=== PATIENT | female | born 1980 | race Caucasian/White ===

== ENCOUNTER 2022-10-29 10:56 | Outpatient (AMB) | payer OTHER, SELFPAY ==
--- NOTE | 2022-10-29 11:18 | A.SPINEOV_ITS ---
Intake Intake Visit Reasons: Herniated disc Intake Note: Ms. Watkins is here today c/o low back pain. MRI done @ [facility]/brought disc. Television Equipment Operator Required: No Assessment & Plan Assessment & Plan (1) Lumbar degenerative disc disease: Code(s): M51.36 - Other intervertebral disc degeneration, lumbar region Plan Dear Dr Pabon This is a 41-year-old Judaism female who came to the office after finding Dr. Neal name on the Internet for minimally invasive spine surgeons. She has had a back issue since 2018 when she was moving a mattress and felt something give out on her back. She was down and out for 3 weeks at that time, and was having a very difficult time getting back to her activities. Eventually with some physical therapy, ice, heat, activity modifications and some steroid injections she was able to get back to some degree of normalcy. Unfortunately however, over the years S times progress the back pain has only continued to steadily get worse. Now she is at a point where she can do minimal activities without discomfort. Even bending down to to get keys off the floor she is in a tremendous amount of pain and discomfort. She is continuing to do physical therapy, but they told her that there was not much more they could do for her and she would have to get her back fixed in the and. She has also been seeing a chiropractor. She has tried acupuncture. [id number] pain medications like Tylenol and Motrin do not help. She has an MRI done at the [facility] showing a severely collapsed disc at L5-S1, getting slowly worse compared to the image in 2018. PMH: She is otherwise healthy, history of Xiomara's thyroiditis, tonsillectomy when she was a child Social hx: She does not smoke, she is a Judaism and does not accept blood products Medications: She takes nature Thyroid and Ambien Allergies: None Physical exam: She is awake alert oriented no acute distress, has stiffness in her back when standing, no focal motor deficits or reflex changes Imaging review: Lumbar MRI done at [facility] in September 2022, s hows a severely collapsed disc at L5-S1 with bilateral foraminal narrowing, Modic endplate changes and Schmorl's node. The rest of her lumbar spine looks great. I compared the images to 2018 in the L5-S1 disc is slowly collapsing since that time. Impression: 41-year-old Jewish female presents for evaluation of chronic low back pain in the setting of a progressively collapsing disc at L5- S1. We discussed the fact that we suspect the pain in her back could definitely be coming from the collapsing disc and that the traditional treatment for this would be spinal fusion. Specifically the approach Dr. Neal would typically take would be an anterior/oblique lumbar interbody fusion done with the assistance of a vascular surgeon . We discussed pertinent risks and benefits. We also discussed the fact that blood products would be an issue and if there were complication she would be unwilling to accept any donor blood products. We have used a Cell Saver in the past in other situations like this but I will need to discuss this with Dr. Neal to see if he is comfortable with this given the fact that we do have to go by some vasculature. Once I speak to Dr. Neal I will call the patient back to finalize the plan. Pt was given risk and benefits of surgery including but not limited to infection, hematoma , nerve injury,durotomy, weakness,bowel/bladder injury, persistent pain, adjacent segment disease as well as the option to continue with conservative treatment and patient wishes to proceed with surgery. Pt is aware they should stop their motrin, aspirin 7 days prior to surgery. All questions were answered to the best of our ability. If there is anything about this patients medical history that we have overlooked or concerns you have about us proceeding with surgery we would appreciate any input you can offer. Thank you for allowing us to care for your patient. The total time spent with this visit with this patient was 45 minutes reviewing history, physical exam, lumbar imaging review, and implementation of treatment plan or further diagnostic testing Tra Neal MD,PhD [facility] Coding Level of Care Code New Pt Level 4 (34932) Diagnoses Lumbar degenerative disc disease M51.36
== END 2022-10-29 12:03 | disposition home or self-care (01) ==
PROVIDERS: Visit Provider Physician Assistant
DX: M51.36 Other intervertebral disc degeneration, lumbar region (principal)
CPT/HCPCS: 99204

== ENCOUNTER → 2022-10-29 10:56 | Outpatient (BNVA) | payer OTHER, SELFPAY | PROVIDERS: Visit Provider Physician Assistant | DX: M51.36 Other intervertebral disc degeneration, lumbar region (principal) | CPT/HCPCS: 99202 ==

== ENCOUNTER → 2023-03-06 07:58 | Outpatient (BNV) | payer OTHER, SELFPAY | PROVIDERS: Admitting Provider Neurological Surgery; PCP Internal Medicine; Visit Provider Internal Medicine | DX: R94.31 Abnormal electrocardiogram [ECG] [EKG] (principal) | CPT/HCPCS: 93010 ==

== ENCOUNTER 2023-04-21 05:58 | Inpatient (IN) | payer OTHER, SELFPAY ==
[2023-03-05 12:18] VITALS: BP 128/67; PULSE 78; RESP 18; O2SAT 97; BMI 33.0
--- NOTE | 2023-03-05 12:31 | P.CONAN_ITS ---
HPI - Anesthesia Eval Consult details Narrative: Pending insurance approval. Dyan notified 03/10/2023 that EKG is abnormal and need PCP input. 42yo F for Left L5-S1 Transkambin Lumbar Interbody Fusion,Poss Transforaminal Lumbar Interbody Fusion Jehova's Witness. Will not accept blood products. Albumin from pharmacy is ok. Cell Saver available per surgeon No recent illness No CP/SOB within limites of pain. Asthma as child. No inhalers now PMFSH Active Problems Active Problems: All Active Problems (Updated 03/05/23 @ 12:10 by Brandi Hood RN) Lumbar degenerative disc disease (Acute) Past Medical History Medical History (Updated 03/05/23 @ 12:10 by Brandi Hood RN) Back pain Exercise-induced asthma Palpitations Xiomara's thyroiditis Family History Family history of problems with anesthesia: No Surgical History Surgical History (Updated 03/05/23 @ 12:11 by Brandi Hood RN) H/O colonoscopy Hx of tonsillectomy History of Problems with Anesthesia: No Social History Social History Are you a primary doggy daycare activities director to a significant other at home: No Do you presently have visiting nurse or other home services: No Patient Tobacco Use Status: Former Tobacco user Quit Date: age 15 Tobacco use type: Cigarette Years Smoked: 6 months Use of substances other than those prescribed or required for medical reasons: No Have you been hit, kicked, punched, or otherwise hurt by someone within the past year? If so, by whom?: No Are you DNR?: No Advance Directives: Yes Advance Directives Information Provided: Yes Advance Directives on File: Yes Advance Directives Date on File: 03/05/23 Recently lost weight without trying: No Eating poorly because of decreased appetite: No Nutrition Risks: No Nutritional Risk Patient : No FDLMP: 02/27/23 : No Poor oral hygiene: No (implant & crowns) Meds Allergies Allergy/AdvReac Type Severity Reaction Status Date / Time No Known Allergies Allergy Verified 11/26/22 13:38 Home Medications Medication Instructions Recorded Confirmed Last Taken Type thyroid (pork) 60 mg tablet (CURRICULUM ASSISTANT PRINCIPAL 60 mg PO QAM 11/26/22 03/05/23 Unknown History Thyroid) zolpidem 5 mg tablet 5 mg PO BEDTIME PRN insomnia 11/26/22 03/05/23 Unknown History ascorbic acid-ascorbate 15 ml PO DAILY 03/05/23 03/05/23 Unknown History calcium-ascorbate sod 500 mg/15 mL oral liquid (Vitamin C) cholecalciferol (vitamin D3) 125 250 mcg PO DAILY 03/05/23 03/05/23 Unknown History mcg (5,000 unit) tablet (Vitamin D3) cyanocobalamin (vitamin B-12) 1 ml PO DAILY 03/05/23 03/05/23 Unknown History 1,000 mcg/mL oral drops (Vitamin B-12) diphenhydramine HCl 50 mg tablet 100 mg PO BEDTIME 03/05/23 03/05/23 Unknown History melatonin 10 mg tablet 20 mg PO BEDTIME 03/05/23 03/05/23 Unknown History selenium 200 mcg capsule 200 mcg PO DAILY 03/05/23 03/05/23 Unknown History vitamin E 670 mg (1,000 unit) 670 mg PO DAILY 03/05/23 03/05/23 Unknown History capsule Exam Height,Weight and Vital Signs: Height 5 ft 5.5 in Weight 91.4 kg Last Vital Signs Pulse 78 03/05/23 12:18 Resp 18 03/05/23 12:18 BP 128/67 03/05/23 12:18 Pulse Ox 97 03/05/23 12:18 O2 Del Method Room Air 03/05/23 12:18 Airway Mallampati Class: I TM Dist: >3cm Neck ROM: Full Loose/Missing/Broken Teeth: No (Implant ~#10, crowns on lower) Heart: RRR Lungs: CTAB Assessment and Plan Assessment Anesthesia Assessment: Anesthesia Plan Discussed and PAT Visit Final Anesthetic Review Family History of Problems with Anesthesia: No History of Problems with Anesthesia: No
[2023-03-05 16:45] LABS: Hematocrit 40.9 % (37.0-47.0); Hemoglobin 13.6 g/dl (12.0-16.0); Mean Corpuscular HGB Conc 33.3 g/dl (31.0-35.0); Mean Corpuscular Hemoglobin 30.7 pg (27.0-33.0); Mean Corpuscular Volume 92.3 fL (80.0-98.0); Mean Platelet Volume 10.1 fL (9.4-12.3); Platelet Count 280 X10*3/uL (160-400); Red Blood Count 4.43 X10*6/uL (4.20-5.50); Red Cell Distribution Width 12.7 % (11.0-16.0); White Blood Count 8.6 X10*3/uL (4.8-10.8)
[2023-03-05 17:05] LABS: Anion Gap 12 (12-20); Blood Urea Nitrogen 11 mg/dL (9-16); Calcium 10.2 mg/dL (8.4-10.2); Carbon Dioxide 28 mmol/L (22-29); Chloride 105 mmol/L (96-108); Creatinine Clr Calc Pharmacy 98.8; Estimated Glomerular Filt Rate > 60; Glucose Random 97 mg/dL (60-115); Sodium 141 mmol/L (135-145)
[2023-03-05 17:18] LABS: TSH reflex Free T4 1.22 uIU/mL (0.32-4.0)
--- NOTE | 2023-03-06 | ECG_ITS ---
Test Reason : preop Blood Pressure : / mmHG Vent. Rate : 080 BPM Atrial Rate : 080 BPM P-R Int : 150 ms QRS Dur : 074 ms QT Int : 366 ms P-R-T Axes : 072 037 018 degrees QTc Int : 422 ms Normal sinus rhythm Cannot rule out Anterior infarct , age undetermined Abnormal ECG No previous ECGs available Referred By: Judy Coreas Electronically Signed By:CORNELL ORR
--- NOTE | 2023-04-18 09:32 | P.CONAN_ITS ---
Documented by User: Judy Coreas NP 04/18/23 13:12 HPI - Anesthesia Eval Consult details Narrative: 42yo F for Left L5-S1 Transkambin Lumbar Interbody Fusion,Poss Transforaminal Lumbar Interbody Fusion Jehova's Witness. Will not accept blood products. Albumin from pharmacy is ok. Cell Saver available per surgeon No recent illness No CP/SOB within limites of pain. Asthma as child. No inhalers now Abnormal EKG at PAT 02/2023. Repeat at PCP and OK to proceed per PCP letter. PMFSH Active Problems Active Problems: All Active Problems (Updated 03/05/23 @ 12:10 by Brandi Hood RN) Lumbar degenerative disc disease (Acute) Past Medical History Medical History Back pain Exercise-induced asthma Palpitations Xiomara's thyroiditis Family History Family history of problems with anesthesia: No Surgical History Surgical History H/O colonoscopy Hx of tonsillectomy History of Problems with Anesthesia: No Social History Social History Are you a primary care services manager to a significant other at home: No Do you presently have visiting nurse or other home services: No Patient Tobacco Use Status: Former Tobacco user Quit Date: age 15 Tobacco use type: Cigarette Years Smoked: 6 months Use of substances other than those prescribed or required for medical reasons: No Have you been hit, kicked, punched, or otherwise hurt by someone within the past year? If so, by whom?: No Are you DNR?: No Advance Directives: Yes Advance Directives Information Provided: Yes Advance Directives on File: Yes Advance Directives Date on File: 03/05/23 Recently lost weight without trying: No Eating poorly because of decreased appetite: No Nutrition Risks: No Nutritional Risk Patient : No FDLMP: 02/27/23 : No Poor oral hygiene: No (implant & crowns) Meds Allergies Allergy/AdvReac Type Severity Reaction Status Date / Time No Known Allergies Allergy Verified 11/26/22 13:38 Home Medications Medication Instructions Recorded Confirmed Last Taken Type thyroid (pork) 60 mg tablet (CENTRAL STERILE SUPPLY TECHNICIAN 60 mg PO QAM 11/26/22 04/21/23 04/21/23 History Thyroid) zolpidem 5 mg tablet 5 mg PO BEDTIME PRN insomnia 11/26/22 04/21/23 Unknown History ascorbic acid-ascorbate 15 ml PO DAILY 03/05/23 04/21/23 Unknown History calcium-ascorbate sod 500 mg/15 mL oral liquid (Vitamin C) cholecalciferol (vitamin D3) 125 250 mcg PO DAILY 03/05/23 04/21/23 Unknown History mcg (5,000 unit) tablet (Vitamin D3) cyanocobalamin (vitamin B-12) 1 ml PO DAILY 03/05/23 04/21/23 Unknown History 1,000 mcg/mL oral drops (Vitamin B-12) diphenhydramine HCl 50 mg tablet 100 mg PO BEDTIME 03/05/23 04/21/23 Unknown History melatonin 10 mg tablet 20 mg PO BEDTIME 03/05/23 04/21/23 Unknown History selenium 200 mcg capsule 200 mcg PO DAILY 03/05/23 04/21/23 Unknown History vitamin E 670 mg (1,000 unit) 670 mg PO DAILY 03/05/23 04/21/23 Unknown History capsule Exam Height,Weight and Vital Signs: Height 5 ft 5.5 in Weight 91.4 kg Last Vital Signs Pulse 78 03/05/23 12:18 Resp 18 03/05/23 12:18 BP 128/67 03/05/23 12:18 Pulse Ox 97 03/05/23 12:18 O2 Del Method Room Air 03/05/23 12:18 Pertinent Lab Results Pertinent Lab Results: Laboratory Tests 03/05/23 16:09 WBC 8.6 RBC 4.43 Hgb 13.6 Hct 40.9 MCV 92.3 MCH 30.7 MCHC 33.3 RDW 12.7 Plt Count 280 MPV 10.1 Absolute Nucleated RBC 0.000 Nucleated RBC % (auto) 0.0 Sodium 141 Potassium 4.0 Chloride 105 Carbon Dioxide 28 Anion Gap 12 BUN 11 Creatinine 0.82 Estim Creat Clear Calc 98.8 Estimated GFR > 60 Random Glucose 97 Calcium 10.2 TSH 1.22 Narrative Narrative: EKG 02/2023 Vent. Rate : 080 BPM Atrial Rate : 080 BPM P-R Int : 150 ms QRS Dur : 074 ms QT Int : 366 ms P-R-T Axes : 072 037 018 degrees QTc Int : 422 ms Normal sinus rhythm Cannot rule out Anterior infarct , age undetermined Abnormal ECG No previous ECGs available Airway Mallampati Class: I TM Dist: >3cm Neck ROM: Full Loose/Missing/Broken Teeth: No (Implant ~#10, crowns on lower) Heart: RRR Lungs: CTAB Assessment and Plan Assessment Anesthesia Assessment: Chart Reviewed (Seen in PAT 02/2023) Final Anesthetic Review Family History of Problems with Anesthesia: No History of Problems with Anesthesia: No Documented by User: Hetal Lema MD 04/21/23 07:37 PMFSH Active Problems Active Problems: All Active Problems (Updated 04/21/23 @ 07:15 by Hetal Lema MD) Lumbar degenerative disc disease (Acute) Xiomara's thyroiditis Past Medical History Medical History Back pain Exercise-induced asthma Palpitations Xiomara's thyroiditis Family History Family history of problems with anesthesia: No Surgical History Surgical History H/O colonoscopy Hx of tonsillectomy History of Problems with Anesthesia: No Social History Social History Are you a primary care services manager to a significant other at home: No Do you presently have visiting nurse or other home services: No Patient Tobacco Use Status: Former Tobacco user Quit Date: age 15 Tobacco use type: Cigarette Years Smoked: 6 months Use of substances other than those prescribed or required for medical reasons: No Have you been hit, kicked, punched, or otherwise hurt by someone within the past year? If so, by whom?: No Are you DNR?: No Advance Directives: Yes Advance Directives Information Provided: Yes Advance Directives on File: Yes Advance Directives Date on File: 03/05/23 Recently lost weight without trying: No Eating poorly because of decreased appetite: No Nutrition Risks: No Nutritional Risk Patient : No FDLMP: 02/27/23 : No Poor oral hygiene: No (implant & crowns) Meds Allergies Allergy/AdvReac Type Severity Reaction Status Date / Time No Known Allergies Allergy Verified 11/26/22 13:38 Home Medications Medication Instructions Recorded Confirmed Last Taken Type thyroid (pork) 60 mg tablet (CENTRAL STERILE SUPPLY TECHNICIAN 60 mg PO QAM 11/26/22 04/21/23 04/21/23 History Thyroid) zolpidem 5 mg tablet 5 mg PO BEDTIME PRN insomnia 11/26/22 04/21/23 Unknown History ascorbic acid-ascorbate 15 ml PO DAILY 03/05/23 04/21/23 Unknown History calcium-ascorbate sod 500 mg/15 mL oral liquid (Vitamin C) cholecalciferol (vitamin D3) 125 250 mcg PO DAILY 03/05/23 04/21/23 Unknown History mcg (5,000 unit) tablet (Vitamin D3) cyanocobalamin (vitamin B-12) 1 ml PO DAILY 03/05/23 04/21/23 Unknown History 1,000 mcg/mL oral drops (Vitamin B-12) diphenhydramine HCl 50 mg tablet 100 mg PO BEDTIME 03/05/23 04/21/23 Unknown History melatonin 10 mg tablet 20 mg PO BEDTIME 03/05/23 04/21/23 Unknown History selenium 200 mcg capsule 200 mcg PO DAILY 03/05/23 04/21/23 Unknown History vitamin E 670 mg (1,000 unit) 670 mg PO DAILY 03/05/23 04/21/23 Unknown History capsule Exam Height,Weight and Vital Signs: Height 5 ft 5.5 in Weight 91.4 kg Last Vital Signs Pulse 78 03/05/23 12:18 Resp 18 03/05/23 12:18 BP 128/67 03/05/23 12:18 Pulse Ox 97 03/05/23 12:18 O2 Del Method Room Air 03/05/23 12:18 Vital Signs Temp Pulse Resp BP Pulse Ox O2 Del Method 04/21/23 06:18 97.5 F 89 18 134/80 98 Room Air Pertinent Lab Results Pertinent Lab Results: Laboratory Tests 03/05/23 16:09 WBC 8.6 RBC 4.43 Hgb 13.6 Hct 40.9 MCV 92.3 MCH 30.7 MCHC 33.3 RDW 12.7 Plt Count 280 MPV 10.1 Absolute Nucleated RBC 0.000 Nucleated RBC % (auto) 0.0 Sodium 141 Potassium 4.0 Chloride 105 Carbon Dioxide 28 Anion Gap 12 BUN 11 Creatinine 0.82 Estim Creat Clear Calc 98.8 Estimated GFR > 60 Random Glucose 97 Calcium 10.2 TSH 1.22 Laboratory Results - last 24 hr 04/21/23 06:00 Urine Test NEGATIVE Airway Mallampati Class: III TM Dist: >3cm Neck ROM: Full Loose/Missing/Broken Teeth: Yes (Implant#10, crowns lower. Missing molars) Assessment and Plan Assessment Anesthesia Assessment: Anesthesia Plan Discussed Final Anesthetic Review Family History of Problems with Anesthesia: No History of Problems with Anesthesia: No NPO: Yes ASA Class: II Final Preanesthetic Review: No Changes in Pt Med Stat, Meds/Allgs Chart Reviewed, Consent Obtained/Reviewed and Anes Risks/Benef Reviewed Patient Risk: Low Procedure Risk: Intermediate Assessment/Block/Sedation in SS: Assess/Block/Sedation-SS Anesthetic Plan Anesthetic Plan: GA Disposition: Standard PACU and Inp. Admit - Standard Bed
[2023-04-21] VITALS (25 sets, daily range): BP systolic 121–173; BP diastolic 8–109; PULSE 72–123; RESP 12–24; TEMP 36.1–37.4; O2SAT 96–100; BMI 34.0
--- NOTE | ~2023-04-21 | FL_ITS ---
EXAMINATION: XR FLUOROSCOPY WITH IMAGES CLINICAL INFORMATION: Lumbar interbody fusion. L5-S1 Trans-Kambin lumbar interbody fusion. COMPARISON: None available. TECHNIQUE: Fluoroscopy Supervised By: Dr. Neal. Fluoroscopy Time: 3.1 minutes. Cumulative Dose: 150.8 mGy. DAP: 38.8 Gycm2. Images: 2. FINDINGS: Two images of lumbar interbody fusion with posterior rods and disc spacer. FL/FL guidance in OR IMPRESSION: Fluoroscopy provided for intraoperative guidance.
[2023-04-21] MEDS: Lactated Ringers 1,000 ML 100 ML IVCONT (06:31)
[2023-04-21] MEDS: methocarbamoL 750 MG TABLET PO (06:31)
[2023-04-21] MEDS: Gabapentin 300 MG CAPSULE PO ×3 (06:31→20:30)
[2023-04-21 06:34] LABS: UPreg QC Valid YES; Urine Pregnancy NEGATIVE (NEGATIVE)
--- NOTE | 2023-04-21 07:06 | MHC.SHP ---
Pre-Procedural Eval Section A - 24 Hr Update-Section A only Date of Service: 04/21/23 The patient is an INPATIENT: No Changes since office visit: No Cold of Flu in the past 2 weeks, No New Medical Problems, No Changes in Medication and No Patient answered all questions The patient has been examined within 24 hours of the surgical procedure. The History & Physical has been completed within 30 days and I have reviewed it.: No Section B - Complete if H&P > 30 days Chief Complaint: s/p L5-S1 Transkambin Allergies: Allergies Allergy/AdvReac Type Severity Reaction Status Date / Time No Known Allergies Allergy Verified 11/26/22 13:38 Review of Systems Sugical H&P ROS: Negative: Constitution, Cardiovascular, Respiratory, Neurological, Psychiatric, Hem-Onc, Allergic/Immunologic, Gastrointestinal, Genitourinary, Musculoskeletal, Integumentary, Endocrine and Eyes/Ears/Nose/Throat Exam Surgical H&P Exam: Not Evaluated: HEENT, Not Evaluated: Heart, Not Evaluated: Lungs, Not Evaluated: Extremities, Not Evaluated: Abdomen, Not Evaluated: Skin and Not Evaluated: Neurological Plan Diagnosis/Plan: Unchanged L5-S1 transkambin oblique lateral lumbar interbody fusion Time Spent With Patient Time: Total time managing care of this patient today __6__ minutes.
[2023-04-21] MEDS: ceFAZolin Sodium/Dextrose,Iso 2 GM/50 ML PIGGYBACK IV ×3 (07:39→20:48)
[2023-04-21] MEDS: Acetaminophen 1,000 MG/100 ML PIGGYBACK 400 MG IV ×3 (08:05→19:41)
--- NOTE | 2023-04-21 09:23 | P.OP_ITS ---
Operative Note Operative Note Date of Service: 04/21/23 Narrative: Preoperative diagnosis: 1) L5-S1 degenerative disc disease; backpain Postprocedure diagnosis: 1) same as above Procedure: 1) L5-S1 oblique lateral lumbar interbody fusion with discectomy, preparation of the endplates and placement of a titanium bullet cage packed with allograft, anterior to the transverse process in modified prone position, with intraoperative biplanar fluoroscopy imaging and electrophysiological monitoring 2) L5-S1 posterior minimally invasive pedicle screw placement and posterior lateral instrumentation and fusion with intraoperative biplanar fluoroscopic imaging and electrophysiological monitoring 3 20 injection of Experal in paravertebral tissue for postop management Consent Informed Consent was obtained for this operation. I have explained the nature, purpose and benefits of the operation. I have discussed the risks and benefit of the operation including possible complications or adverse events with patient/family. Alternative(s) were discussed with the patient with their relative benefits and risks as well as the consequences of not accepting the operation were included in obtaining consent. Surgeon: PALOMA GARCIA MD, PHD Procedure Assisted By: Tra parker Description of Procedure: This is a complex surgery on the lumbar spine and an radiology physician assistant as needed for safety of the surgery for setup of instrumentation, retraction and closing. History: This 42-year-old female suffering from intractable low back pain. An MRI shows L5-S1 lumbar degenerative disc disease. She is Jehovah Witness and therefore I offered an oblique lumbar lateral interbody fusion followed by a posterior lateral instrumented fusion L5-S1. The procedure and complications were explained and the patient was consented. Procedure: The patient was brought to the operating room and endotracheally intubated. The patient was positioned on the Rupesh spine table in a modified prone position for ease of access from the left side.. 2C arms were installed for fluoroscopy. Prepping and draping was done followed by timeout. The landmarks, including spinal processes, transverse processes, disc space, endplates and pedicles are identified and marked. The following steps are taken for each specified level: L5-S1 level: Cage size 10 mm high and 27 mm long titanium . The patient was turned using the rotation of the surgical table so a near direct anterior lateral approach to the lumbar spine could be achieved. A small incision was then made superior to the mid iliac crest and then using biplanar fluoroscopy visualization, under electrophysiological monitoring and stimulat ion, we introduced an electrophysiological probe through the retroperitoneal space into the desired disc anterior to the transverse process and then passed it into the disc space after finding a silent window. The sleeve was retained and the probe was removed, then the K wire was passed sequentially into the disc space. A dilating tube was then passed along the same route. Following this, a working channel, a working channel was then passed sequentially into the disc space. The working channel was manually held in position while a series of disc cleaning tools were passed through the channel to remove the affected disc under clear and direct biplanar fluoroscopic visualization, decompress the nerve roots and equal corticated vertebral endplates at this segment. Arthrodesis of the intervertebral space via an anterior retroperitoneal exposure was achieved through Kambin's [place] and lateral extraforaminal space. Allograft was added into the anterior disc space. The working channel was then removed. A titanium interbody cage tightly packed with allograft was then inserted into the midportion of the intervertebral disc space over a K-wire under biplanar fluoroscopic visualization and intraoperative neuro monitoring. The inter pedicular and intradiscal space was significantly enlarged and disc height was restored to worked normal anatomy there for releasing pressure on the nerve roots visual largely the spinal canal and lateral recess as well as foramen were bilateral decompressed and all bones were confined to the borders of the disc space . The following steps are then taken for each specified level: L5-S1 level: Bilateral L5 and S1 screws with a diameter of 6.5 x 40 mm. The posterolateral fusion is initiated after the patient is rotated to a true prone position. The entry point to the pedicle is identified in the AP and lateral views and then the skin incision is injected with local anesthetic. We entered the pedicle with the pediguard tap after which a K-wire was introduced into the vertebral body. Additionally, I used a small periosteal decorticator along the screws to refresh the surface of the bone and facet and I put some amount of allograft for additional stability for the posterolateral fusion. Over the K-wire we insert pedicle screws bilaterally. After the screws were placed, we put the jimmie in place and under fluoroscopic imaging, we locked the jimmie in place and removed the screw tops and then each incision has been closed with 0 Vicryl for the fascia and a 3-0 Vicryl for the subdermal layer. Steri- Strips were used to approximate the incisions. An OpSite with Tegaderm was used to cover the incision. Final x-rays and AP and lateral projection showed good position of the interbody device and instrumentation. All sponge and needle counts were correct. The patient was extubated and transported in a stable condition to the recovery room. 2-0 Vicryl This procedure was done with the aid of a physician radiology physician assistant as a qualified resident was not available. Anesthesia: General Estimated Blood Loss (ml): 20 Specimen: None Duration of Surgery: 1 hour 15 Postoperative Plan: Admit to inpatient
[2023-04-21] MEDS: fentaNYL citrate/PF 100 MCG/2 ML VIAL 25 MCG IVPUSH ×4 (10:25→10:50)
[2023-04-21] MEDS: oxyCODONE HCl Immed Release 5 MG TABLET 10 MG PO ×2 (10:25→18:19)
[2023-04-21] MEDS: ondansetron HCL 4 MG/2 ML VIAL IVPUSH (10:25)
--- NOTE | 2023-04-21 10:39 | PHA.MEDREC ---
Pharmacy Consult ? Medication Reconciliation Pharmacy has completed the medication reconciliation. Reviewed med rec done by nursing
[2023-04-21] MEDS: HYDROmorphone HCl 0.5 MG/0.5 ML SYRINGE 0.25 MG IVPUSH (11:20)
--- NOTE | 2023-04-21 12:47 | PHA.MEDREC ---
Pharmacy Consult ? Medication Reconciliation Pharmacy has reviewed the medication reconciliation.
[2023-04-21] MEDS: Ketorolac Tromethamine 15 MG/ML VIAL IVPUSH ×2 (15:11→20:30)
[2023-04-21] MEDS: hydrOXYzine HCL 10 MG TABLET PO ×2 (15:16→20:30)
[2023-04-21] MEDS: HYDROmorphone HCl 1 MG/ML SYRINGE IVPUSH ×2 (16:13→20:31)
[2023-04-21] MEDS: 0.9 % Sodium Chloride 1,000 ML 75 ML IVCONT (16:13)
--- NOTE | 2023-04-21 16:43 | PC.NURSE ---
Pt arrived from PACU at approximately 1550. At this time pt A&Ox4 neuro assessment intact. Pt was able ambulate with contact guard to bathroom and void. Pt LS clear on room air, abd soft +BS and asking to eat, no edema present. Pt is S/p lateral lumbar interbody fusion, has dressing on back that was reinforced due to tape falling off small amount of bloody drainage noted. Pt endorsing pain at surgical site, PRN Dilaudid given with good effect. IVF infusing as ordered, vital signs stable. All safety measures in place.
[2023-04-21] MEDS: Docusate Sodium 100 MG CAPSULE PO (20:30)
[2023-04-21] MEDS: Melatonin 3 MG TABLET 18 MG PO (20:30)
[2023-04-22] MEDS: ceFAZolin Sodium/Dextrose,Iso 2 GM/50 ML PIGGYBACK IV (01:40)
[2023-04-22] MEDS: HYDROmorphone HCl 1 MG/ML SYRINGE IVPUSH ×3 (01:41→10:52)
[2023-04-22] MEDS: 0.9 % Sodium Chloride 1,000 ML 75 ML IVCONT (03:18)
[2023-04-22 03:19] VITALS: BP 117/57; PULSE 102; RESP 16; TEMP 36; O2SAT 98
[2023-04-22] MEDS: Acetaminophen 1,000 MG/100 ML PIGGYBACK 400 MG IV (03:19)
[2023-04-22] MEDS: Ketorolac Tromethamine 15 MG/ML VIAL IVPUSH ×2 (03:21→08:09)
[2023-04-22] MEDS: oxyCODONE HCl Immed Release 5 MG TABLET 10 MG PO ×2 (04:19→09:57)
[2023-04-22 07:27] VITALS: BP 117/57; PULSE 102; O2SAT 98
[2023-04-22 07:51] VITALS: BP 104/58; PULSE 86; RESP 18; TEMP 36.1; O2SAT 94
[2023-04-22] MEDS: Vitamin E (Dl,Tocopheryl Acet) 180 MG (400 UNIT) CAPSULE 360 MG PO (08:04)
[2023-04-22] MEDS: Thyroid,Pork 30 MG TABLET 60 MG PO (08:04)
[2023-04-22] MEDS: Gabapentin 300 MG CAPSULE PO (08:04)
[2023-04-22] MEDS: hydrOXYzine HCL 10 MG TABLET PO (08:04)
[2023-04-22] MEDS: Docusate Sodium 100 MG CAPSULE PO (08:04)
[2023-04-22] MEDS: Cyanocobalamin (Vitamin B-12) 1,000 MCG TABLET 1000 MCG PO (08:04)
--- NOTE | 2023-04-22 09:11 | MHC.CM.PN ---
Addendum entered by Gin Newberry RN 04/22/23 10:11: Patient medically cleared for dc home self care. to transport. Original Note: PATIENT IS FROM HOME W/ . FUNCTIONALLY INDEPENDENT. NO SERVICES. RECENTLY PURCHASE A SHOWER CHAIR AND TOILET RISER. PCP- MEL SHEETS MD HCP - REPORTS IS HCP, COPY REQUESTED DP: PT REC HOME W/ FAMILY SUPPORT. PATIENT IN AGREEMENT W/ PLAN. TO PROVIDE TRANSPORTATION. CM WILL CONTINUE TO FOLLOW.
--- NOTE | 2023-04-22 09:52 | HO.NEURO.PN ---
Neurosurgery Operative Note Date of Service: 04/22/23 Narrative: Postop day 1 trans Kambin interbody fusion Patient reports minimal back pain, denies any lower extremity tingling numbness weakness or pain. She has tolerating a diet, slept well overnight and has been voiding well. Afebrile, vital signs stable Physical exam: Patient is awake alert oriented resting comfortably in bed, back dressing has been reinforced but no sign of hematoma, her bilateral lower extremity strength is full Impression: Postop day 1. Trans Kambin interbody fusion L5-S1, clinically doing very well, she is met criteria for discharge will be sent home. Discharge instructions were discussed. Patient seen at bedside with Dr. Neal.
--- NOTE | 2023-04-22 09:55 | PM.DS ---
DS: Providers Provider Date of Service: 04/22/23 Date of admission: 04/21/23 05:58 Date of discharge: 04/22/23 Primary care physician: Amrit Pabon MD Admitting clinician: Nino Neal DS: Diagnosis Discharge Diagnosis (1) Lumbar degenerative disc disease: Status: Acute DS: Summary Time Attestation Discharge Coordination Time: discharge time of ____ minutes Quality: Safe Use of Opioids Does Pt have an Active Cancer Diagnosis on the Problem List?: No Quality: Stroke Does the patient have a stroke diagnosis?: No Physical Exam Vital Signs: Vital Signs: Last Vital Signs Temp 97 F 04/22/23 07:51 Pulse 86 04/22/23 07:51 Resp 18 04/22/23 07:51 BP 104/58 L 04/22/23 07:51 Pulse Ox 94 04/22/23 07:51 O2 Del Method Room Air 04/22/23 07:51 O2 Flow Rate 2 04/21/23 13:30 BMI result Body Mass Index 34.0 Discharge Plan Discharge Anticipated Discharge Date/Time: 04/22/23 13:00 Patient Disposition: Home, Self-Care Discharge Diagnosis: Lumbar DDD L5-s1 Referrals: Amrit Pabon MD [Primary Care Provider] - 1 Week Discharge Medications: New docusate sodium [Colace] 100 mg capsule 100 mg PO BID Qty: 20 0RF oxycodone 5 mg tablet See Rx Instructions .ROUTE .COMPLEX PRN (Reason: pain) Qty: 30 0RF Rx Instructions: 1-2 tabs po q4 hours pain; Partial Fill upon patient request. gabapentin 300 mg capsule 300 mg PO TID Qty: 90 0RF hydroxyzine HCl 10 mg tablet 10 mg PO TID Qty: 30 0RF methocarbamol 500 mg tablet 500 mg PO TID PRN (Reason: spasms) Qty: 30 0RF Continued zolpidem 5 mg tablet 5 mg PO BEDTIME PRN (Reason: insomnia) thyroid (pork) [MOTION GRAPHICS DESIGNER Thyroid] 60 mg tablet 60 mg PO QAM vitamin E 670 mg (1,000 unit) Capsule 670 mg PO DAILY diphenhydramine HCl 50 mg Tablet 100 mg PO BEDTIME cholecalciferol (vitamin D3) [Vitamin D3] 125 mcg (5,000 unit) Tablet 250 mcg PO DAILY Vitamin C 500 mg/15 mL Liquid 15 ml PO DAILY selenium 200 mcg Capsule 200 mcg PO DAILY melatonin 10 mg Tablet 20 mg PO BEDTIME Vitamin B-12 1,000 mcg/mL Drops 1 ml PO DAILY Discharge Orders: Discharge Order (Routine); Ordered 04/22/23 Ordered By: Tra Antunez Diet: Advance to usual diet Activity on Discharge: As tolerated Stand Alone Forms: Patient Portal Discharge page Activity Restrictions/Additional Instructions: After your spinal surgery we ask you to observe the following restrictions/guidelines: Activity: It is normal to feel some discomfort as you increase your activity, but that will improve with time. We ask you avoid heavy lifting or acitivities that cause pain. As a general rule, 8lbs is a safe limit for lifting right after surgery. Walk as much as you feel comfortable but not to exhaustion. You will feel extra tired the first few days after surgery. Stay well hydrated. It is OK to walk up and down stairs You may return to driving when you are off narcotics (such as vicodin, oxycodone, dilaudid, etc), and you are back to normal functional capacity. If you have any concerns please check with office before driving. Return to work is specific to each patient and each surgery, so please speak with your doctor/PA at first follow up. Please bring paperwork such as FMLA at that time if you need it filled out. Medications: For optimum pain control, it is best to start with a combination of 500 mg of Tylenol every 4 hours with 600 mg of Motrin every 8 hours, and use narcotics as needed in between for breakthrough pain. We have given you a medication for nerve pain called gabapentin, and hydroxyzine. This is to help with any nerve pain you may develop in your leg after surgery. If after 3-4 days you do not experience any leg pain you can discontinue them. We will give you a short supply of narcotics after surgery (usually one weeks worth). If you need more please call the office but do not use more than prescribed. You will need to give our office 48 hours notice if you need narcotics refilled and we do not fill narcotics on weekends or evenings. If you are on a narcotic, it is a good idea to take a stool softener such as colace or senna to avoid constipation If you take blood thinner such as aspirin, Plavix, Coumadin, Effient, Eliquis etc for conditions such as Afib, DVT, Pulmonary embolus, coronary disease, stents etc please speak with your surgeon about specific details as to when you can resume these medications. You can resume NSAIDs on post op day 1 (eg: Motrin, Naproxen, etc). Follow up: Please call the office, , after surgery to arrange a 3 week follow up for wound check. Wound Care: You may remove your dressing on the first day after surgery. ?You may ?leave open to air. Please do not remove the steri strips underneath. they will fall off on their own in one week. IT IS NORMAL FOR THE WOUND TO OOZE OR BE BLOODY FOR A FEW DAYS AFTER SURGERY. ?IF THIS HAPPENS JUST PLACE NEW DRESSING OVER IT TO AVOID STAINING CLOTHES. You may shower on post op day # 1 We ask that you do not let the water soak the wound. If it does get wet, just towel dry lightly. Please do not scrub your incision or place any type of chemical/ointment on the wound. No tub baths, pools or jacuzzis for one month. If you have any leaking or redness from your wound, or fevers, please call office Care Plan Goals: Discharge home Health Concerns: None Plan of Treatment: Discharge home Assessment: Stable
--- NOTE | 2023-04-22 14:02 | HO.POSTANES ---
Post Anesthesia Evaluation Post Anesthesia Evaluation Date of Service: 04/22/23 Vital Signs: Vital Signs Temp Pulse Resp BP Pulse Ox O2 Del Method 04/22/23 07:51 97 F 86 18 104/58 L 94 Room Air 04/22/23 07:27 102 H 117/57 L 98 04/22/23 03:19 96.8 F 102 H 16 117/57 L 98 Room Air Anesthesia: General Endotracheal-GETA Mental Status: Awake Pain Control: Satisfactory Nausea/Vomiting: None Hydration: Adequate Anesthesia-Related Issues: No Anes. Related Issues
== END 2023-04-22 11:02 | disposition home or self-care (01) | DRG 304 ==
LOC: HO.SSSA 06:02 → HO.S3 15:03
PROVIDERS: Nurse Practitioner; Admitting Provider Neurological Surgery; PCP Internal Medicine; Visit Provider Neurological Surgery
PROC: 0SG30A0 Fusion of Lumbosacral Joint with Interbody Fusion Device, Anterior Approach, Anterior Column, Open Approach (ICD-10-PCS; principal; 2023-04-21 07:30)
DX: M51.37 Other intervertebral disc degeneration, lumbosacral region (principal); E06.3 Autoimmune thyroiditis; Z79.890 Hormone replacement therapy; Z87.891 Personal history of nicotine dependence; Z79.899 Other long term (current) drug therapy
CPT/HCPCS: 36415; 80048; 81025; 84443; 85027; 93005; 97161; C1713; C9290; J0131; J0665; J0690; J1170; J1805; J1885; J2250; J2405; J2550; J2704; J3010; L8699

== ENCOUNTER → 2023-04-21 05:58 | Outpatient (BNV) | payer OTHER, SELFPAY | PROVIDERS: Admitting Provider Neurological Surgery; PCP Internal Medicine; Visit Provider Neurological Surgery | DX: M51.36 Other intervertebral disc degeneration, lumbar region (principal) | CPT/HCPCS: 20930; 22558; 22612; 22840; 22853; 63056; 99024; 99499 ==

== ENCOUNTER 2023-05-14 09:35 | Outpatient (AMB) | payer OTHER, SELFPAY ==
--- NOTE | 2023-05-14 09:44 | A.SPINEOV_ITS ---
Intake Intake Visit Reasons: 1st post op Intake Note: Ms. Watkins is here today for 1st Post op. Composing Machine Operator/Tender Required: No Allergies No Known Allergies Allergy (Verified 11/26/22 13:38) Do you need a note to return to daycare/school/sports/work: No Assessment & Plan Assessment & Plan (1) Lumbar degenerative disc disease: Code(s): M51.36 - Other intervertebral disc degeneration, lumbar region (2) S/P spinal fusion: Code(s): Z98.1 - Arthrodesis status Plan Procedure: L5-S1 MELLISSA Barba comes in today for her 1st postoperative visit. She reports she is very satisfied with the surgery and feels much better than she did pre- operatively. The patient reports she is up walking around and completing the majority of her ADLs. She reports that she no longer suffers from her intractable low back pain. She additionally reports no leg pain at this time. She was informed that she is doing remarkably well at this point, encouraged to continue with her regular walking and exercise. She had several questions about postoperative healing course which I answered to the best of my ability. No new neurological deficits. Patient is able to ambulate well, rises from a seated position without difficulty. Incision sites are closed, well healing, with no signs of drainage. We will follow-up with the patient in 6 weeks for her 2nd postoperative visit. At that time we will get x-rays to review with the patient. Orders: Orders XR lumbar spine 4V min Today M51.36 - Other intervertebral disc degeneration, lumbar region Coding Level of Care Code Global (13147) Diagnoses Lumbar degenerative disc disease M51.36 S/P spinal fusion Z98.1
== END 2023-05-14 10:11 | disposition home or self-care (01) ==
PROVIDERS: PCP Internal Medicine; Visit Provider Physician Assistant
DX: M51.36 Other intervertebral disc degeneration, lumbar region (principal); Z98.1 Arthrodesis status
CPT/HCPCS: 99024

== ENCOUNTER 2023-05-14 09:35 | Outpatient (REF) | payer OTHER, SELFPAY | END 2023-05-14 09:36 | disposition home or self-care (01) | LOC: HO.HOSX 09:35 | PROVIDERS: PCP Internal Medicine; Visit Provider Physician Assistant | DX: M51.36 Other intervertebral disc degeneration, lumbar region (principal); Z98.1 Arthrodesis status | CPT/HCPCS: 99212 ==

== ENCOUNTER 2023-06-25 13:26 | Outpatient (REF) | payer OTHER, SELFPAY ==
--- NOTE | ~2023-06-25 | XR_ITS ---
EXAMINATION: XR LUMBOSACRAL SPINE WITH OBLIQUES CLINICAL INFORMATION: Arthrodesis status. Status post L5-S1 lumbar interbody fusion. COMPARISON: April 21, 2023. TECHNIQUE: AP, lateral neutral, flexion and extension views of the lumbar spine. FINDINGS: Mild dextroscoliosis of the lumbar spine. Status post posterior fusion at L5-S1 with disc spacer. Hardware appears intact. Mild multilevel spondylosis with loss of disc space height at L4-L5. Grade 1 anterolisthesis of L5 on S1. XR/XR lumbar spine 4V min IMPRESSION: 1. Status post posterior fusion at L5-S1 with disc spacer. Hardware appears intact. 2. Mild multilevel spondylosis with loss of disc space height at L4-L5.
== END 2023-06-25 13:27 | disposition home or self-care (01) ==
LOC: HO.HOSX 13:26
PROVIDERS: Visit Provider Physician Assistant
DX: Z98.1 Arthrodesis status (principal)
CPT/HCPCS: 72110; 99212

== ENCOUNTER 2023-06-25 13:26 | Outpatient (AMB) | payer OTHER, SELFPAY ==
--- NOTE | 2023-06-25 13:47 | HO.SPINEOV ---
Intake Visit Reasons: 2nd post op with xrays Intake Note: Ms. Watkins is here today for her 2nd post-op appointment with x-rays. Telephone Sterilizer Required: No Allergies No Known Allergies Allergy (Verified 06/25/23 13:48) Assessment & Plan Assessment & Plan (1) S/P spinal fusion: Code(s): Z98.1 - Arthrodesis status Category: Medical Plan Procedure: L5-S1 MELLISSA Barba comes in today for 2nd postoperative visit after having a single-level transkambin completed by our service. She continues to do very well, and reports no significant pain since her surgery. She has been ambulating well, and has not needed to utilize any pain medications. Unfortunately, she still has some numbness/tingling in her bilateral feet. We are unsure if this is related to permanent nerve damage if this too will improve. She asked several questions regarding postoperative healing course, all of which I answered to the best of my ability. She requested continued follow-up and like to be seen in 6 months to evaluate for progression of fusion. No new neurological deficits. The patient's incision sites are clean, dry, and completely healed over. She ambulates well and rises from a seated position without difficulty. We will follow up with the patient again in 6 months at her request. Ideally we will obtain x-rays to evaluate for any fusion, however the patient is aware this may not be visible at 6 months nor on plain films. It would also be good to discuss continuation / resolution of her numbness/tingling in her feet. David Neal MD,PhD [facility] Orders: Orders XR lumbar spine 4V min Today Z98.1 - Arthrodesis status Coding Level of Care Code Global (94069) Diagnoses S/P spinal fusion Z98.1
== END 2023-06-25 14:11 | disposition home or self-care (01) ==
PROVIDERS: PCP Internal Medicine; Visit Provider Physician Assistant
DX: Z98.1 Arthrodesis status (principal)
CPT/HCPCS: 99024

== ENCOUNTER → 2023-06-25 13:26 | Outpatient (BNVA) | payer OTHER, SELFPAY | PROVIDERS: PCP Internal Medicine; Visit Provider Physician Assistant ==

== ENCOUNTER 2023-12-09 10:01 | Outpatient (REF) | payer OTHER, SELFPAY | END 2023-12-09 10:02 | disposition home or self-care (01) | LOC: HO.HOSX 10:01 | PROVIDERS: Visit Provider Physician Assistant | DX: M51.369 Other intervertebral disc degeneration, lumbar region without mention of lumbar back pain or lower extremity pain (principal); Z98.1 Arthrodesis status | CPT/HCPCS: 72110; 99212 ==

== ENCOUNTER 2023-12-09 13:16 | Outpatient (AMB) | payer OTHER, SELFPAY ==
--- NOTE | 2023-12-09 13:30 | A.SPINEOV_ITS ---
Intake Visit Reasons: 6 months f/up with xrays Intake Note: Ms. Watkins is here today for her 6month f/u with xrays. Oil Expert Required: No Allergies No Known Allergies Allergy (Verified 06/25/23 13:48) Assessment & Plan Assessment & Plan (1) S/P spinal fusion: Code(s): Z98.1 - Arthrodesis status Category: Surgical Plan: Procedure: L5-S1 MELLISSA Barba is a pleasant 43-year-old female who comes in today for a subsequent follow-up visit to discuss postoperative healing course and obtain a additional set of x-rays. She reports complete resolution of her back pain and states that the numbness/tingling in her bilateral feet has completely resolved. Overall she is very satisfied with the surgery and has returned to normal living. She recently completed a hike in [place] without issue. We reviewed her x-ray imaging that was completed during this visit which showed stable placement of the surgical screws, cage, and fusion rods. Unfortunately there is a locking cap that has backed out of 1 of her L5 screws. The patient is now about 9 months out from surgery. She is doing very well and reports complete resolution of her symptoms. Is very likely that she has already begun the process of fusion at this level that is affected by the locking cap backing out. I reviewed the x-ray imaging with both the patient and the attending neurosurgeon Dr. Neal. We discussed possible plan/intervention. We believe that this time the best course would be to have the patient come back in [address] scan to evaluate for fusion progress in the setting of a nominal hardware issue that does not affect the integrity of the hardware's effectiveness when compared to previous x-ray imaging. The patient understands and agrees to this plan. All of her questions were answered to the best of my ability. David Neal MD,PhD [facility] Orders: Orders CT lumbar spine wo IV con Today Z98.1 - Arthrodesis status Coding Level of Care Code Est Pt Level 3 (99878) Diagnoses S/P spinal fusion Z98.1
== END 2023-12-09 14:05 | disposition home or self-care (01) ==
PROVIDERS: PCP Internal Medicine; Visit Provider Physician Assistant
DX: Z98.1 Arthrodesis status (principal)
CPT/HCPCS: 99213

== ENCOUNTER 2024-02-23 10:23 | Outpatient (REF) | payer OTHER, SELFPAY ==
--- NOTE | ~2024-02-23 | CT_ITS ---
CLINICAL HISTORY: Z98.1 - Arthrodesis status CT lumbar spine without contrast Comparison: 12/09/2023 radiography Findings: Mild grade 1 retrolisthesis at L4/L5. No acute fracture. L5/S1: Status post anterior and posterior fusion with stable and unremarkable hardware. Incorporated intervertebral body cage as well as surrounding subtle bridging bony trabeculations within the majority of the fused disc surface. Severe degenerative narrowing of the L4/L5 spinous process. No evidence of significant disc space narrowing proximal to the fused level. Normal visualized abdominal contents. IMPRESSION: L5/S1: Status post anterior and posterior fusion with stable and unremarkable hardware. Incorporated intervertebral body cage as well as surrounding subtle bridging bony trabeculations within the majority of the fused disc surface. This document has been electronically signed by: Umu Ruiz MD on 02/24/2024 09:28:58
--- OUTSIDE RECORDS SUMMARY | 2024-02-23 11:25 | XMS_ITS | Patient Health Record ---
Author Organization [facility] Address [address] [place] [address] REASON FOR REFERRAL No Information PLAN OF TREATMENT No Information
--- OUTSIDE RECORDS SUMMARY | 2024-02-23 11:25 | XMS_ITS ---
Author Organization [facility] Address [address] [place] [address] Care Team Providers Care Product Tester Fiberglass Name Role Phone JASSON ZHU Encounters Encounter Location Date Provider Diagnosis [facility] [address] [place] [address] 09/04/2022 JASSON ZHENG PLAN OF TREATMENT No Information Progress Notes * Joanie KRUEGERKartsenOB: [birth year] (43 yo F)Acc No.[id number]:09/04/2022 Patient:??Freda KRUEGER Provider:??SUN MANLEY :1980?Age:41 Y?Sex:Fe male Date:09/04/2022 Address:[address] [place] [address] Subjective: * Chief Complaints: * ? * Medical History:?? Objective: Assessment: Plan: * Treatment: * Images: Billing Information: * Visit Code:?? * Procedure Codes:?? * Sign off status: Pending * Provider:??SUN MANLEY Date :??09/04/2022
== END 2024-02-23 10:24 | disposition home or self-care (01) ==
LOC: HO.CT 10:23
PROVIDERS: PCP Internal Medicine; Visit Provider Physician Assistant
DX: Z98.1 Arthrodesis status (principal)
CPT/HCPCS: 72131

== ENCOUNTER → 2024-02-23 10:28 | Outpatient (BNV) | payer OTHER, SELFPAY | PROVIDERS: PCP Internal Medicine; Visit Provider Radiology Diagnostic Radiology | DX: Z98.1 Arthrodesis status (principal) | CPT/HCPCS: 72131 ==